=== PATIENT | male | born 1975 | race Caucasian/White ===

== ENCOUNTER 2021-03-03 12:45 | Emergency (ER) | payer SELFPAY ==
[2021-03-03] VITALS (29 sets, daily range): BP systolic 137–194; BP diastolic 90–120; PULSE 79–113; RESP 12–26; TEMP 36.3–36.4; O2SAT 95–99
--- NOTE | 2021-03-03 12:45 | RT.EKG_ITS ---
APPROVED REPORT Exam: Resting ECG Reason for Exam: sob Patient Location: E HR:103 bpm ECG Measurements Heart Rate 103 AXIS NV 160 P 66 QRSd 93 QRS 2 QT 356 T 8 QTc 466 Conclusion Sinus tachycardia...rate> 99. Sinus. No STEMI. I have reviewed and interpreted ECG and agree with software generated interpretation.
--- NOTE | 2021-03-03 13:05 | ED.GENADUL_ITS ---
Discharge Plan Disposition Patient Disposition: HOME Condition: Improving Discharge Details Clinical Impression: Dizziness, Dyspnea, Accelerated hypertension Primary Care Provider: Unknown,Unknown ED Provider: Chaya Cuellar Discharge Instructions Instructions: Dyspnea (ED), Hypertension (ED), Dizziness (ED) Additional Instructions: Drink plenty of fluids and get plenty of rest. You are being sent home with Ativan to take as needed and directed for return of any of your symptoms. Try to slowly cut down your caffeine intake to see if this helps your symptoms. Try to eliminate additional sodium in your diet to see if this helps reduce your blood pressure. It is advisable that you purchase a blood pressure cuff to monitor your blood pressure at home. A quality assurance monitor final has been placed on you here in the emergency department. Return the monitor to the hospital as directed by respiratory therapy. You have been placed on care management list to help arrange for a follow-up appointment with a primary care doctor to establish care and for recheck of your symptoms and your blood pressure. If your blood pressure does not improve with dietary changes, you may need to start blood pressure medication. Discharge Data Discharge Date/Time-TO BE ENTERED AT DEPARTURE: 03/03/21 16:20 Discharge Physician: Chaya Cuellar Medical Decision Making 45-year-old male with no known past medical history presents with intermittent episodes of lightheadedness, shortness of breath and generalized weakness for the past few weeks. He states most of his symptoms occurred with drinking coffee. Blood pressure 194/106, heart rate 113 on arrival. He appears somewhat anxious but nontoxic. EKG notes a rate of 103, sinus, no STEMI and nondiagnostic. Differential diagnosis includes dehydration, stimulant or caffeine, PE, etc. Will place an IV, bolus IV fluids, screening labs, CT chest and give Ativan fluids and reassess. Labs and imaging reviewed and unremarkable. Patient declined Ativan dose here. He states he feels better and feels good to go home. Patient's blood pressure improved here but still remains hypertensive 147/100. Patient advised to make dietary modifications to see if this improves his blood pressure. It was noted that while I was in the room speaking to him that his blood pressure went from 147/10 1-1 70/120. Could be an element of whitecoat hypertension. Patient advised to purchase a blood pressure cuff for monitoring home and to decrease his sodium intake. Holter monitor was placed. Patient was placed on care management/to arrange for a follow-up appointment with the primary doctor to establish care and for reevaluation of the symptoms, results of his Holter monitor and for consideration for longer monitor if indicated. Advised to follow up with the primary care doctor for re-evaluation. Usual and customary return precautions given prior to discharge. Medical Records Medical records reviewed: Yes I reviewed the patient's medical records. Imaging Data Radiologic Study: Radiologist's impression: CTA Chest With Contrast Exam date and time: 03/03/2021 1:33 PM Age: 45 years old Clinical indication: Shortness of breath and other: Dizziness TECHNIQUE: Imaging protocol: Computed tomographic angiography of the chest with contrast. 3D rendering (Not supervised by radiologist): MIP and/or 3D reconstructed images were created by the technologist. Radiation optimization: All CT scans at this facility use at least one of these dose optimization techniques: automated exposure control; mA and/or kV adjustment per patient size (includes targeted exams where dose is matched to clinical indication); or iterative reconstruction. Contrast material: OMNIPAQUE 350; Contrast volume: 100 ml; Contrast route: INTRAVENOUS (IV); COMPARISON: No relevant prior studies available. FINDINGS: Pulmonary arteries: Normal. No pulmonary emboli. Aorta: Unremarkable. No aortic aneurysm. No aortic dissection. Lungs: Unremarkable. No consolidation. No masses. Pleural spaces: Unremarkable. No pneumothorax. No pleural effusion. Heart: Unremarkable. No cardiomegaly. No pericardial effusion. Lymph nodes: Unremarkable. No enlarged lymph nodes. Bones/joints: Unremarkable. No acute fracture. Soft tissues: Unremarkable. IMPRESSION: No acute findings. Lab Data Lab results reviewed: Yes I reviewed the patient's lab results. Labs: Laboratory Tests Range/Units 03/03/21 03/03/21 03/03/21 13:20 13:20 13:20 WBC (4.4-10.8) 10^3/uL 7.17 RBC (4.36-5.78) 10^6/uL 5.39 Hgb (13.5-17.5) g/dL 15.6 Hct (40.0-50.0) % 46.9 MCV (80-95) fL 87.0 MCH (27.0-33.0) pg 28.9 MCHC (32.0-36.0) % 33.3 RDW (11.8-14.1) % 12.3 Plt Count (130-400) 10^3/uL 264 MPV (8.0-11.0) fL 9.5 Immature Gran % 0.4 Neutrophils % 56.6 Lymphocytes % 37.7 Monocytes % 5.2 Eosinophils % 0.0 Basophils % 0.1 Nucleated RBC % % 0 Absolute Neutrophils (1.2-6.7) 10^3/uL 4.06 Absolute Lymphocytes (1.2-3.4) 10^3/uL 2.70 Absolute Monocytes (0.1-0.8) 10^3/uL 0.37 Absolute Eosinophils (0.0-0.7) 10^3/uL 0.00 Absolute Basophils (0.0-0.2) 10^3/uL 0.01 Sodium (136-145) mmol/L 140 Cancelled Potassium (3.5-5.1) mmol/L 3.7 Cancelled Chloride (98-107) mmol/L 104 Cancelled Carbon Dioxide (21.0-32.0) mmol/L 26.3 Cancelled Anion Gap (3-11) mmol/L 9.7 Cancelled BUN (7-18) mg/dL 15 Cancelled Creatinine (0.70-1.30) mg/dL 1.1 Cancelled Estimated GFR/1.73 m2 (mL/min/1.73m2) >= 60.00 Cancelled Glucose (74-106) mg/dL 106 Cancelled Calcium (8.5-10.1) mg/dL 9.2 Cancelled Magnesium (1.8-2.4) mg/dL 2.0 Total Bilirubin (0.2-1.0) mg/dL 0.7 Cancelled AST (15-37) U/L 20 Cancelled ALT (16-63) U/L 36 Cancelled Alkaline Phosphatase (46-116) U/L 60 Cancelled Troponin I (<0.06) ng/mL < 0.05 Total Protein (6.4-8.2) g/dL 8.3 H Cancelled Albumin (3.4-5.0) g/dL 4.6 Cancelled COVID-19 Source Range/Units 03/03/21 14:18 WBC (4.4-10.8) 10^3/uL RBC (4.36-5.78) 10^6/uL Hgb (13.5-17.5) g/dL Hct (40.0-50.0) % MCV (80-95) fL MCH (27.0-33.0) pg MCHC (32.0-36.0) % RDW (11.8-14.1) % Plt Count (130-400) 10^3/uL MPV (8.0-11.0) fL Immature Gran % Neutrophils % Lymphocytes % Monocytes % Eosinophils % Basophils % Nucleated RBC % % Absolute Neutrophils (1.2-6.7) 10^3/uL Absolute Lymphocytes (1.2-3.4) 10^3/uL Absolute Monocytes (0.1-0.8) 10^3/uL Absolute Eosinophils (0.0-0.7) 10^3/uL Absolute Basophils (0.0-0.2) 10^3/uL Sodium (136-145) mmol/L Potassium (3.5-5.1) mmol/L Chloride (98-107) mmol/L Carbon Dioxide (21.0-32.0) mmol/L Anion Gap (3-11) mmol/L BUN (7-18) mg/dL Creatinine (0.70-1.30) mg/dL Estimated GFR/1.73 m2 (mL/min/1.73m2) Glucose (74-106) mg/dL Calcium (8.5-10.1) mg/dL Magnesium (1.8-2.4) mg/dL Total Bilirubin (0.2-1.0) mg/dL AST (15-37) U/L ALT (16-63) U/L Alkaline Phosphatase (46-116) U/L Troponin I (<0.06) ng/mL Total Protein (6.4-8.2) g/dL Albumin (3.4-5.0) g/dL COVID-19 Source Nasal/Nares ECG Data Attestation: I personally reviewed and interpreted this ECG (s) as follows: Interpretation: Rate of 103, sinus, no acute ST elevation or depression. MD 160. QTc 466. HPI General Mode of arrival: ambulatory . Date/Time Provider Initiated Documentation: 03/03/21 13:04 . Limitations to Documentation: no limitations . Information obtained by: patient . HPI Narrative: Patient is a 45-year-old male who presents to the ED with a complaint of intermittent episodes of lightheadedness and shortness of breath of the past 2 weeks. Patient states he has had 3 total episodes in which he feels lightheaded, difficulty breathing and generalized weakness. He states the third episode occurred today while he was sitting at his computer and drinking coffee. He states he thinks these episode has occurred with drinking coffee. He states he drinks about 20 ounces of coffee daily and has been out for quite some time. He denies any fever, recent illness, chest pain, nausea, vomiting, diarrhea. Related Data Allergies Allergy/AdvReac Type Severity Reaction Status Date / Time No Known Allergies Allergy Unverified 03/03/21 12:58 General Stated Complaint: SOB PURA: 2 Review of Systems All systems reviewed & are unremarkable except as noted in HPI and below Constitutional Constitutional: Reports as per HPI, Denies chills, Reports fatigue and Denies fever(s) Eyes Eyes: Denies blurry vision ENT Ears, Nose, Mouth, and Throat: Reports dizziness, Denies sore throat and Denies throat swelling Cardiovascular Cardiovascular: Denies chest pain and Reports dyspnea Respiratory Respiratory: Denies cough and Reports dyspnea Gastrointestinal Gastrointestinal: Denies abdominal pain, Denies diarrhea and Denies vomiting Genitourinary Genitourinary: Denies hematuria and Denies dysuria Musculoskeletal Musculoskeletal: Denies back pain and Denies numbness Integumentary/Breasts Skin/Breast: Denies lesions and Denies rash Neurologic Neurologic: Reports dizziness, Denies localized weakness and Denies numbness Endocrine Endocrine: Reports fatigue Allergic/Immunologic Allergic/Immunologic: Denies throat swelling [facility] Medical History (Updated 03/03/21 @ 15:56 by Chaya Cuellar DO) No significant past medical history Surgical History (Updated 03/03/21 @ 13:32 by Chaya Cuellar DO) No significant past surgical history Social History Smoking/Tobacco Use Status: Never Smoking risk assessment performed?: Yes Alcohol Intake: current Alcohol Intake frequency: holidays/special occasions only Alcohol type: beer Drug use: Never Substance use type: does not use Do you feel safe at home: Yes Do you feel safe in your relationship?: Yes Exam Const General: cooperative, no acute distress and anxious Orientation: alert, awake and oriented x3 HENMT Head: normal to inspection Face and sinus: normal facial exam Eyes General: appearance normal, both eyes and all related structures EOM: EOM intact bilaterally Neck Neck: normal visual inspection and No submandibular swelling Lymphatic: no lymphadenopathy noted Chest Chest: normal inspection of the chest and no tenderness Resp Effort & Inspection: normal respiratory effort and able to speak in complete sentences Auscultation: clear to auscultation bilaterally Cardio Rate: tachycardic Rhythm: regular rhythm GI Inspection: normal to inspection Palpation: soft, not firm, not rigid and nontender Auscultation: normal bowel sounds Skin General skin exam: no rashes or lesions noted Neuro General: patient alert, patient awake and patient oriented x3 Cognition: normal cognition Speech: speech normal Motor: muscle tone normal throughout Sensory Exam: no sensory deficits noted Extrem General: normal to inspection, full ROM, capillary refill normal, no calf tenderness bilaterally and no edema Psych Appearance: grossly normal Mental Status: mental status grossly normal Speech and Movement: speech and movement normal Affect: normal affect Course Vital Signs Vital signs: Vital Signs Temperature 97.3 F L 03/03/21 12:54 Pulse 113 H 03/03/21 12:54 Respiratory Rate 20 03/03/21 12:54 Blood Pressure 194/106 H 03/03/21 12:54 Pulse Oximetry 95 03/03/21 12:54 Temperature 97.3 F L 03/03/21 12:54 Temperature Source Temporal Artery Scan 03/03/21 12:54 Pulse 113 H 03/03/21 12:54 Respiratory Rate 20 03/03/21 12:54 Blood Pressure 194/106 H 03/03/21 12:54 Blood Pressure Position Supine 03/03/21 12:54 Pulse Oximetry 95 03/03/21 12:54 Oxygen Delivery Method Room Air 03/03/21 12:54 Oxygen Flow Rate 0 03/03/21 12:54 Pain Level 0 03/03/21 12:54
--- NOTE | 2021-03-03 13:30 | DI.CT_ITS ---
Exam(s) CT CHEST PE CTA EXAM: CT CHEST PE CTA CLINICAL HISTORY: dizziness, sob, r/o acute PE. TECHNIQUE: Imaging Protocol: Axial CT angiography was performed with multi-slice acquisition and mu lti-planar and/or 3D reconstructions. CONTRAST MATERIAL: Intravenous: Omnipaque 350 Contrast volume:structured data in ml COMPARISON: No exams were available for comparison FINDINGS: Pulmonary Arteries: No evidence of filling defect to suggest pulmonary emboli. Tracheobronchial tree: Patent where visualized. Mediastinum and Melba: No dominant adenopathy or fluid collection. Pulmonary parenchyma: No consolidation or dominant measurable mass. Mild dependent atelectasis. Pleura: No effusion or pneumothorax. Heart: The heart is not dilated. No coronary artery calcifications are seen. Aorta: Thoracic aorta non-dilated. Upper abdomen: Unremarkable. Bones: Unremarkable for age. Tubes, Catheters, and Lines: None IMPRESSION: No evidence of pulmonary embolism. No evidence of infiltrates. RADIATION DOSE DELIVERED: 423.81mGy.cm Total DLP DATA REPOSITORY: All CT scans at this facility are submitted to the National Radiology Data Registry (NRDR) Dose Index Registry (DIR) with the [employer] ([employer]). RADIATION OPTIMIZATION: All CT scans at this facility use at least one of these dose optimization te chniques: automated exposure control; mA and/or kV adjustment per patient size (includes targeted exa ms where dose is matched to clinical indication); or iterative reconstruction.
[2021-03-03 13:41] LABS: ALT 36 U/L (16-63); AST 20 U/L (15-37); Albumin 4.6 g/dL (3.4-5.0); Alkaline Phosphatase 60 U/L (46-116); Anion Gap 9.7 mmol/L (3-11); BUN 15 mg/dL (7-18); Bilirubin, Total 0.7 mg/dL (0.2-1.0); CO2 26.3 mmol/L (21.0-32.0); CREATININE 1.1 mg/dL (0.70-1.30); Calcium 9.2 mg/dL (8.5-10.1); Chloride 104 mmol/L (98-107); Glucose 106 mg/dL (74-106); Potassium 3.7 mmol/L (3.5-5.1); Sodium 140 mmol/L (136-145); Total Protein 8.3 g/dL (6.4-8.2)
[2021-03-03] MEDS: Omnipaque 350 MG/ML 100 ML BTL IJ (13:45)
[2021-03-03] MEDS: Normal Saline - Diluent 50 ML VIAL IV (13:45)
[2021-03-03] MEDS: Normal Saline Flush 10 ML SYR IVP (13:46)
[2021-03-03 13:51] LABS: Abs Immature Grans 0.03 10^3/uL (0.0-0.06); Absolute Basophil Count 0.01 10^3/uL (0.0-0.2); Absolute Monocyte Count 0.37 10^3/uL (0.1-0.8); Absolute Neutrophil Count 4.06 10^3/uL (1.2-6.7); Basophils % 0.1; HCT 46.9 % (40.0-50.0); HGB 15.6 g/dL (13.5-17.5); Immature Grans % 0.4; Lymphocytes % 37.7; MCH 28.9 pg (27.0-33.0); MCHC 33.3 % (32.0-36.0); MPV 9.5 fL (8.0-11.0); Monocytes % 5.2; Neutrophils % 56.6; Nucleated RBC 0 %; Platelet Count 264 10^3/uL (130-400); RBC 5.39 10^6/uL (4.36-5.78); RDW 12.3 % (11.8-14.1); WBC 7.17 10^3/uL (4.4-10.8)
[2021-03-03 14:02] LABS: Troponin I < 0.05 ng/mL (<0.06)
[2021-03-03] MEDS: Normal Saline 1,000 ML 1000 ML IV (14:15)
[2021-03-03 14:27] LABS: Source Nasal/Nares
--- NOTE | 2021-03-03 14:35 | DI.VRAD_ITS ---
PROCEDURE INFORMATION: Exam: CTA Chest With Contrast Exam date and time: 03/03/2021 1:33 PM Age: 45 years old Clinical indication: Shortness of breath and other: Dizziness TECHNIQUE: Imaging protocol: Computed tomographic angiography of the chest with contrast. 3D rendering (Not supervised by radiologist): MIP and/or 3D reconstructed images were created by the technologist. Radiation optimization: All CT scans at this facility use at least one of these dose optimization techniques: automated exposure control; mA and/or kV adjustment per patient size (includes targeted exams where dose is matched to clinical indication); or iterative reconstruction. Contrast material: OMNIPAQUE 350; Contrast volume: 100 ml; Contrast route: INTRAVENOUS (IV); COMPARISON: No relevant prior studies available. FINDINGS: Pulmonary arteries: Normal. No pulmonary emboli. Aorta: Unremarkable. No aortic aneurysm. No aortic dissection. Lungs: Unremarkable. No consolidation. No masses. Pleural spaces: Unremarkable. No pneumothorax. No pleural effusion. Heart: Unremarkable. No cardiomegaly. No pericardial effusion. Lymph nodes: Unremarkable. No enlarged lymph nodes. Bones/joints: Unremarkable. No acute fracture. Soft tissues: Unremarkable. IMPRESSION: No acute findings. Dictated and Authenticated by: Desmond Funes MD. Ordering:ANNIE Larkin MD
[2021-03-03 15:19] LABS: COVID-19 PCR Negative (Negative)
[2021-03-03 16:01] LABS: TSH (W/Ref FT4) 0.66 uIU/mL (0.36-3.74)
[2021-03-03] MEDS: LORazepam 0.5 MG TAB 1.5 MG PO (16:15)
== END 2021-03-03 16:20 | disposition home or self-care (01) ==
PROVIDERS: Emergency Provider Physician Assistant
DX: R42 Dizziness and giddiness (principal); R06.00 Dyspnea, unspecified; I10 Essential (primary) hypertension
CPT/HCPCS: 36415; 71275; 80053; 87635; 93005; 96360; 96361; 99285; 83735; 84443; 84484; 85025; 93010; 99284; J3490

== ENCOUNTER 2021-03-03 15:58 | Outpatient (RCR) | payer SELFPAY ==
--- NOTE | 2021-03-03 16:00 | HOLTER_ITS ---
APPROVED REPORT Conclusion This was a 48-hour Holter monitor ordered for dizziness Predominant rhythm was sinus with an average heart rate of 70. Minimum was 48, maximum 138 There was 1 isolated PVC. There were 4 atrial premature beats. There was no atrial fibrillation, no high-grade AV block, no pauses greater than 3 seconds Patient symptoms corresponded to sinus rhythm at 73 bpm
== END 2021-03-11 23:59 | disposition home or self-care (01) ==
LOC: RT 15:58
DX: R42 Dizziness and giddiness (principal)
CPT/HCPCS: 93225; 93226